=== PATIENT | female | born 1985 | race Caucasian/White ===

== ENCOUNTER 2019-07-30 15:39 | Emergency (ER) | payer MEDICAID ==
--- NOTE | 2019-07-30 15:53 | ER Document Report ---
ED Medical Screen (RME) - General Chief Complaint: Chest Pressure Stated Complaint: CHEST DISCOMFORT Time Seen by Provider: 07/30/19 15:49 Mode of Arrival: Ambulatory Information source: Patient Notes: 34-year-old female presented to ED for complaint of chest pain started on Tuesday. She states that the left upper chest started sharp on Tuesday then has become dull and achy since then. She states it goes through to the back down the left shoulder down the left arm. She states it is never gone up in her neck or in her jaw. Patient denies any past cardiac history. She states she did hav e some high blood pressure during . Last menstrual period started on Tuesday the day after her chest pain started. She states she has no family history of sudden heart attacks and no history of any family have a heart attack at all. She does not smoke drink or use any drugs. She is alert oriented respirations regular nonlabored speaking in full sentences. I have greeted and performed a rapid initial assessment of this patient. A comprehensive ED assessment and evaluation of the patient, analysis of test results and completion of medical decision making process will be conducted by an additional ED providers.
[2019-07-30] MEDS ORDERED: ASPIRIN 81 MG TABLET, CHEWABLE PO ONE (15:54)
--- NOTE | 2019-07-30 16:13 | RADIOLOGY REPORT (SQ) ---
EXAM DESCRIPTION: CHEST 2 VIEWS IMAGES COMPLETED DATE/TIME: 07/30/2019 4:04 pm REASON FOR STUDY: chest pain down left arm COMPARISON: None. EXAM PARAMETERS: NUMBER OF VIEWS: two views TECHNIQUE: Digital Frontal and Lateral radiographic views of the chest acquired. RADIATION DOSE: NA LIMITATIONS: none FINDINGS: LUNGS AND PLEURA: No opacities, masses or pneumothorax. No pleural effusion. MEDIASTINUM AND HILAR STRUCTURES: No masses or contour abnormalities. HEART AND VASCULAR STRUCTURES: Heart normal size. No evidence for failure. BONES: No acute findings. HARDWARE: None in the chest. OTHER: No other significant finding. IMPRESSION: NO ACUTE RADIOGRAPHIC FINDING IN THE CHEST. TECHNICAL DOCUMENTATION: JOB ID: [id number] 2010 [employer]- All Rights Reserved Reading location - IP/workstation name: [email or web address]
--- NOTE | 2019-07-30 16:17 | ER Document Report ---
ED Cardiac - General Chief Complaint: Chest Pain Stated Complaint: CHEST DISCOMFORT Time Seen by Provider: 07/30/19 15:49 Mode of Arrival: Ambulatory Notes: HPI: 34-year-old female who states some nontraumatic anterior left chest "sharpness" that started 3 days ago on Tuesday afternoon. She states amount radiation to her shoulder. Slightly worse when she moves her left arm. She denies any weakness, numbness, or swelling of the arm. She denies any cough, fevers, shortness of breath, calf pain or leg swelling, recent trips or travel. She denies any family history of early heart attacks or strokes. Patient does not smoke. She denies any drugs. Pain is nonexertional and denies any obvious aggravating relieving factors. ROS: See HPI All other review of systems reviewed and otherwise negative Reviewed vital signs and nursing note as charted by RN. PHYSICAL EXAM: CONSTITUTIONAL: Alert and oriented and responds appropriately to questions. Well-appearing; well-nourished HEAD: Normocephalic; atraumatic EYES: PERRL; Conjunctivae clear, sclerae non-icteric NECK: Supple without meningismus; non-tender; no cervical lymphadenopathy, no masses CARD: Regular rate and rhythm; no murmurs; symmetric distal pulses RESP: Normal chest excursion without splinting or tachypnea; patient does have some mild tenderness to the left anterior chest wall with no obvious swelling, erythema, or crepitus; breath sounds clear and equal bilaterally; no wheezes, no rhonchi, no rales ABD/GI: Normal bowel sounds; non-distended; soft, non-tender; no palpable organomegaly or masses BACK: The back appears normal and is non-tender to palpation EXT: Normal ROM in all joints; non-tender to palpation; no edema SKIN: No acute lesions noted NEURO: CN 2-12 intact; 5/5 bilateral upper and lower extremity strength with sensation intact to light touch PSYCH: The patient's mood and manner are appropriate. Grooming and personal hygiene are appropriate. - Related Data Allergies/Adverse Reactions: Pertussis Vaccines Allergy (Verified 07/30/19 15:55) Past Medical History - General Information source: Patient - Social History Smoking Status: Former Smoker Frequency of alcohol use: None Drug Abuse: None Family History: Reviewed & Not Pertinent Patient has suicidal ideation: No Patient has homicidal ideation: No Physical Exam - Vital signs Vitals: Temp Pulse Resp BP Pulse Ox 98.8 F 93 18 142/94 H 99 07/30/19 15:51 07/30/19 15:51 07/30/19 15:51 07/30/19 15:51 07/30/19 15:51 Course - Re-evaluation Re-evalutation: Given the above history and physical examination, in this young healthy 34-year-old female with minimal risk factors, currently no chest pain, no shortness of breath or leg swelling, vital signs as recorded, with pain for 3 days, with an unremarkable EKG as dictated below, I do believe the risk of ACS, PE, dissection to be unlikely. 07/30/19 16:16 EKG shows heart rate of 93, normal sinus rhythm, no obvious ST elevation or depression. 07/30/19 18:04 Labs as recorded. Vital signs are stable. Currently pain-free. No change in neurologic or left upper arm exam. - Vital Signs Vital signs: Temp Pulse Resp BP Pulse Ox 98.8 F 93 18 142/94 H 99 07/30/19 15:51 07/30/19 15:51 07/30/19 15:51 07/30/19 15:51 07/30/19 15:51 - Laboratory Result Diagrams: 07/30/19 17:18 07/30/19 17:18 Discharge - Discharge Clinical Impression: Chest pain Qualifiers: Chest pain type: unspecified Qualified Code(s): R07.9 - Chest pain, unspecified Condition: Good Disposition: HOME, SELF-CARE Additional Instructions: Come back immediately for any worsening pain, change in location or quality of pain, shortness of breath, fevers, swelling or weakness of the arm, or any other acute problems. Please follow-up with the primary care physician and possibly the handle turner as we have discussed. Referrals: KARTHIK PASCUAL MD [ACTIVE STAFF] - Follow up as needed
[2019-07-30 17:31] LABS: ABSOLUTE BASOPHILS # (AUTO) 0.1 10^3/uL (0.0-0.2); ABSOLUTE LYMPHOCYTES (AUTO) 2.3 10^3/uL (0.5-4.7); ABSOLUTE MONOCYTES (AUTO) 0.7 10^3/uL (0.1-1.4); ABSOLUTE NEUT (AUTO) 6.8 10^3/uL (1.7-8.2); BASOPHILS % (AUTO) 0.6 % (0-2); EOSINOPHILS % (AUTO) 0.5 % (0-6); HEMATOCRIT 42.7 % (36.0-47.0); LYMPHOCYTES % (AUTO) 22.7 % (13-45); MEAN CORPUSCULAR HEMOGLOBIN 29.5 pg (27.0-33.4); MEAN CORPUSCULAR HGB CONC 35.2 g/dL (32.0-36.0); MEAN CORPUSCULAR VOLUME 84 fl (80-97); MONOCYTES % (AUTO) 7.5 % (3-13); PLATELET COUNT 340 10^3/uL (150-450); RED BLOOD COUNT 5.09 10^6/uL (3.72-5.28); RED CELL DISTRIBUTION WIDTH 12.9 % (11.5-14.0); SEGMENTED NEUTROPHILS % (AUTO) 68.7 % (42-78); TOTAL CELLS COUNTED % (AUTO) 100 %
[2019-07-30 17:55] LABS: ALBUMIN 4.8 g/dL (3.5-5.0); ALKALINE PHOSPHATASE 76 U/L (38-126); ANION GAP 8 (5-19); ASPARTATE AMINO TRANSFERASE 34 U/L (14-36); BILIRUBIN,TOTAL 0.5 mg/dL (0.2-1.3); BLOOD UREA NITROGEN 9 mg/dL (7-20); CALCIUM 9.5 mg/dL (8.4-10.2); CARBON DIOXIDE 25 mmol/L (22-30); CHLORIDE 104 mmol/L (98-107); GLUCOSE 98 mg/dL (75-110); POTASSIUM 4.4 mmol/L (3.6-5.0); TOTAL PROTEIN 8.1 g/dL (6.3-8.2)
[2019-07-30 18:43] VITALS: BP 105/87
--- NOTE | 2019-08-01 07:21 | EKG REPORT ---
SEVERITY:- BORDERLINE ECG - SINUS RHYTHM INFERIOR Q WAVES, PROBABLY NORMAL VARIATION : Confirmed by: Carolann Jo 01-Aug-2019 07:20:11
== END 2019-07-30 18:50 | disposition home or self-care (01) ==
LOC: ER 15:39
DX: R07.9 Chest pain, unspecified (principal); Z87.891 Personal history of nicotine dependence; Z88.7 Allergy status to serum and vaccine
CPT/HCPCS: 36415; 71046; 80053; 84484; 85025; 93005; 93010; 99285